=== PATIENT | female | born 1980 | race African-American/Black ===

== ENCOUNTER 2023-08-25 15:51 | Outpatient (CLI) | payer BC | END 2023-08-25 15:52 | disposition home or self-care (01) | LOC: DTY/OP 15:51 | PROVIDERS: ATTEND Surgery | DX: K21.9 Gastro-esophageal reflux disease without esophagitis (principal) | CPT/HCPCS: 97802 ==

== ENCOUNTER 2024-01-11 05:18 | Emergency (ER) | payer BC ==
[~2024-01-11 05:18] MED LIST: Acetaminophen 500 MG TAB ONE; Labetalol HCl 100 MG/20 ML VIAL ONE; Ondansetron PF 4 MG/2 ML Vial ONE; hydrALAZINE 10 MG TAB ONE
== END 2024-01-11 05:39 | disposition home or self-care (01) ==
LOC: ERS 05:18
DX: R51.9 Headache, unspecified (principal); R03.0 Elevated blood-pressure reading, without diagnosis of hypertension
CPT/HCPCS: 70450; J2405